=== PATIENT | male | born 1960 | race Caucasian/White ===

== ENCOUNTER 2016-12-05 19:11 | Inpatient (IN) ==
[~2016-12-05 19:11] MED LIST: *HR* Propofol 500 MG/50 ML BOTTLE IVC ONE; Lidocaine -MPF 2% 5 ML VIAL INFILT ONE
[2016-12-05] MEDS ORDERED: Ondansetron 4 MG/2 ML VIAL IVP ONE (20:10)
[2016-12-05] MEDS ORDERED: Ketorolac 30 MG/ML VIAL IVP ONE (20:10)
[2016-12-05] MEDS ORDERED: *HR* FentaNYL (PF) 100 MCG/2 ML VIAL IVP ONE (20:11)
--- NOTE | 2016-12-05 20:14 | Emergency Department Note ---
Disposition Clinical Impression: Flank pain, Osteolytic lesion Abdominal pain Qualifiers: Abdominal location: right lower quadrant Qualified Code(s): R10.31 - Right lower quadrant pain Disposition: Admitted As Inpatient Condition: Fair Time of Disposition: 06:52 General Adult HPI - General Chief complaint: ED Abdominal Pain Stated complaint: ABD PAIN/BLOATING, N/V Time Seen by Provider: 12/05/16 19:40 Source: patient, family Mode of arrival: ambulatory Limitations: no limitations Nursing Notes Reviewed: Yes Vital Signs Reviewed: Yes - History of Present Illness HPI Narrative: History of lower abdominal pain. He states that 5 days ago he was pumping up a tire on his tractor and believes that this is how his abdominal pain began. He does have chronic back pain. He states that the pain is gotten worse and he has diaphoresis whenever the pain is extreme. He states that Dottie was unable to sleep due to the pain. He states that he has no history of kidney stones however ascends to. He states the pain is worse in his back and radiates around to his groin. Pain Scale: 8 - Related Data Home Medications Medication Instructions Recorded Confirmed Aspirin Enteric Coated [Aspirin EC] 81 mg PO DAILY 02/11/16 12/05/16 Meloxicam 15 mg PO DAILY 02/11/16 12/05/16 Terazosin HCl 2 mg PO HS 02/11/16 12/05/16 Atorvastatin Calcium [Lipitor] 20 mg PO HS 12/05/16 12/05/16 HYDROcodone/Acet 7.5/325 mg [Nettie 1 tab PO Q4H PRN 12/05/16 12/05/16 7.5-325 mg] Loratadine [Claritin] 10 mg PO DAILY 12/05/16 12/05/16 Omeprazole [PriLOSEC] 20 mg PO BID 12/05/16 12/05/16 Allergies Allergy/AdvReac Type Severity Reaction Status Date / Time No Known Allergies Allergy Verified 02/11/16 17:16 All systems ED: reviewed and negative except as stated. Constitutional: Denies: fever, chills ENT ED: Denies: congestion Cardiovascular: Denies: chest pain, palpitations, syncope Respiratory: Denies: cough, dyspnea Gastrointestinal: Reports: abdominal pain (Radiates around from his right back. Lower quadrant pain.). Denies: nausea, vomiting, diarrhea Genitourinary: Reports: hematuria (Chronic due to prostate enlargement). Denies : urgency, dysuria, frequency Musculoskeletal: Reports: back pain (Right sided back pain radiates down to his groin) Integumentary: Denies: rash, abrasion Neurological: Denies: headache, weakness, numbness, paresthesias Past Medical History - Past Medical History Medical history: Reports: hyperlipidemia, RA, other Psychiatric history: Reports: no psych history - Social History Smoking Status: Former smoker Smokeless Tobacco Status: No Alcohol use: Reports: occasionally Drug use: Reports: none Physical Exam - General Limitations: no limitations General appearance: alert, in no apparent distress - Head Head exam: atraumatic, normocephalic, normal inspection - Eye Eye exam: Present: normal appearance, PERRL, EOMI. Absent: scleral icterus - ENT ENT exam: normal exam, normal oropharynx, mucous membranes moist - Neck Neck exam: Present: normal inspection, full ROM, trachea midline. Absent: tenderness, meningismus - Chest Chest inspection: Present: normal inspection, symmetric chest wall rise. Absent : tenderness - Cardiovascular Cardiovascular exam: Present: regular rate, normal rhythm - Abdominal Exam Abdominal exam: Present: soft, Non-Tender, tenderness (Right lower quadrant radiation from his back. No Myers sign.). Absent: distention, rebound, rigidity, normal bowel sounds, organomegaly - Extremities Exam Extremities exam: Present: normal inspection, full ROM, normal capillary refill. Absent: tenderness, pedal edema - Back Exam Back exam: Present: normal inspection, full ROM, CVA tenderness (R). Absent: tenderness - Neurological Exam Neurological exam: Present: alert, oriented X3 - Psychiatric Psychiatric exam: Present: normal affect, normal mood - Skin Skin exam: Present: warm, dry, intact, normal color. Absent: rash, cyanosis, diaphoresis Course Course Narrative: Well-appearing male patient lying comfortably in bed complaining of a four-day history of lower abdominal pain. He states 5 days ago he was pumping up a tire on his tractor and noticed some lower abdominal pain. He thought he strained his muscles when he woke up Sunday morning he had a diffuse pain across his lower abdomen. The pain has since moved to his right flank and now radiates down into his right groin area. He states he has pain that shoots to his right testicle. He does drive a truck. He states that he was comfortable yesterday while driving a truck but then when he tried to get to sleep he could not get comfortable and was sweating due to the pain. He does report a history of an perforated stomach. His abdomen is diffusely nontender on exam. He has good bowel sounds. He has no pain on palpation of his upper quadrants. He does have some minimal pain on palpation of his right lower quadrant and then up around to his flank. He does have some CVA tenderness on the right. He also has suprapubic tenderness. States he does have a history of an enlarged prostate and generally has blood in his urine due to this. He denies any fevers or chills but does report getting sweaty due to the pain. He states he has no history of kidney stones however both of his sons have extensive history of stones. We will provide patient with pain relief get basic lab workup and scan patient's abdomen. - Reevaluation(s) Reevaluation #1: We will admit patient for possible metastatic disease to his back as well as stranding around the pancreatic head. He has been made aware of the lesions in his spine as well as the stranding around his pancreas. He is agreeable to admission at this time. He is well-appearing however requesting more pain medication. We will provide this at this time. - Consultations Consultation #1: Dr. Malcolm accepted patient is stable condition. Vital Signs Temperature 98.2 F 12/05/16 19:25 Pulse Rate 90 12/05/16 19:25 Respiratory Rate 18 12/05/16 19:25 Blood Pressure 144/89 12/05/16 19:25 O2 Sat by Pulse Oximetry 97 12/05/16 19:25 Temperature 98.6 F 12/06/16 03:56 Pulse Rate 77 12/06/16 03:56 Respiratory Rate 16 12/06/16 03:56 Blood Pressure 142/83 12/06/16 03:56 O2 Sat by Pulse Oximetry 96 12/06/16 03:56 Oxygen Delivery Oxygen Delivery Room Air Medical Decision Making - Medical Records Medical records reviewed: Yes I reviewed the patient's medical records. - Lab Data Lab results reviewed: Yes I reviewed the patient's lab results. Result diagrams: 12/05/16 20:30 12/05/16 20:30 Lab Results 0512/05/16 12/05/16 Range/Units 19:58 20:30 20:30 WBC 10.8 (4.3-11.1) K/mcL RBC 4.64 (4.19-5.50) M/mcL Hgb 13.2 (12.9-16.9) g/dL Hct 40.7 (37.5-50.1) % MCV 87.7 (83.0-100.0) fL MCH 28.4 (28.0-33.3) pg MCHC 32.4 (31.6-35.5) g/dL RDW 13.2 (11.5-14.5) % Plt Count 243 (140-400) K/mcL MPV 10.8 (9.4-12.4) fL Immature Gran % 0.5 (0-4) % Seg Neutrophils % 75.2 % Lymphocytes % 14.1 % Monocytes % 8.0 % Eosinophils % 1.8 % Basophils % 0.4 % Neutrophils # 8.1 (1.6-8.9) K/mcL Lymphocytes # 1.5 (0.6-4.6) K/mcL Monocytes # 0.9 (0.0-1.3) K/mcL Eosinophils # 0.2 (0.0-0.6) K/mcL Basophils # 0.0 (0.0-0.2) K/mcL Sodium 139 (136-145) mEq/L Potassium 3.6 (3.5-4.5) mEq/L Chloride 104 (98-109) mEq/L Carbon Dioxide 26 (19-29) mEq/L BUN 23 (8-26) mg/dL Creatinine 0.97 (0.72-1.25) mg/dL Est GFR ( Amer) > 60 (> 60) Est GFR (Non-Af Amer) > 60 (> 60) BUN/Creatinine Ratio 24 (6-26) Glucose 98 (70-99) mg/dL Calculated Osmolality 292 (280-300) Calcium 10.5 (8.6-10.8) mg/dL Total Bilirubin 0.6 (0.2-1.2) mg/dL Direct Bilirubin 0.4 (0.0-0.5) mg/dL Indirect Bilirubin 0.2 (0.0-1.2) mg/dL AST 36 H (5-34) Units/L ALT 45 (0-55) Units/L Alkaline Phosphatase 240 H (38-126) Units/L Serum Total Protein 7.7 (6.0-8.3) g/dL Albumin 3.5 (3.5-5.0) g/dL Globulin 4.2 H (2.4-3.5) g/dL Albumin/Globulin Ratio 0.8 L (1.1-2.2) Amylase 82 (25-125) Units/L Lipase 20 (8-78) Units/L Urine Color Dark Yellow (Yellow) Urine Clarity Cloudy A (Clear) Urine pH 5.5 (5.0-8.0) pH Units Ur Specific [place] > 1.030 H (1.010-1.025) Urine Protein 100 H (Neg-Trace) mg/dL Urine Glucose (UA) Normal (Normal) mg/dL Urine Ketones Trace H (Negative) mg/dL Urine Blood Moderate H (Negative) Urine Nitrite Negative (Negative) Urine Bilirubin Small H (Negative) Urine Urobilinogen Normal (Normal) mg/dL Ur Leukocyte Esterase Negative (Negative) Urine Microscopic RBC 3-5 H (0-3) per hpf Urine Microscopic WBC 0-3 (0-3) per hpf Ur Squamous Epith Cells Few (None-Few) per lpf Calcium Oxalate Crystal Present Urine Bacteria Few (None-Few) per hpf Hyaline Casts None Seen (None-Few) per lpf Urine Mucus Many H (Few) Ur Culture Indicated? NO (NO) - Radiology Data Radiology results reviewed: Yes I reviewed the patient's radiology results. Attestation Statement - Attestation Attestation: I personally interviewed and examined this patient and my medical decision- making was reviewed with the ED Resident Physician, Dr. Burgos. I agree with the documented findings, disposition and treatment plan as described except to the extent set forth below. Patient is a 48-year-old white male who presents to the emergency room today brought by his for complaints of intermittent right flank pain and right lower quadrant abdominal pain. Patient states over the weekend he was using a pump to inflate a tire and while he was pumping on the pump he developed some transient left groin pain which has since resolved. Patient states after he woke up the next day he was having generalized abdominal pain, felt like he was in his abdominal wall that was sore and then intermittent episodes of right flank pain that radiates around toward the right abdomen. Patient states that in the past year he has had abdominal surgery for a perforated viscus most likely due to ulcer formation from anti-inflammatory use and required emergent surgery. states since that time he still does not feel he is back to 100% from that incident and when he began to have abdominal pain they were both concerned and wanted to make sure he did not have any complications or recurrences of problems. She has been afebrile, no upper respiratory symptoms cold or cough, no chest pain or heaviness, no shortness of breath, no nausea or vomiting associated with this pain, no bowel changes and no bright red blood per rectum. Patient has chronic urinary symptoms secondary to enlarged prostate which he sees urologist for. According to the patient has chronic microscopic hematuria from this and occasional episodes where he has difficulty maintaining a urine stream. This has not changed or worsened with these symptoms. Patient also has chronic low back pain that he takes pain medications and formerly anti- inflammatories for. Patient denies any history of fall or trauma prior to the orientation of this pain. Agree with physical exam is documented. On my assessment patient had no flank tenderness on the right most of his tenderness was right paraspinal lumbosacral area, and also some mild right lower quadrant tenderness without peritoneal signs. Otherwise abdomen is soft with good bowel sounds. Receipted with lab evaluation, urinalysis, and CT imaging of the abdomen and pelvis. Patient's labs overall were unremarkable with a normal lipase but CT shows stranding and inflammation around the majority of the pancreas that appear consistent with pancreatitis. He also has what appear to be areas of bony metastases in the spine but unclear as to the etiology. Prostate appears normal. No other abnormalities were seen in the abdomen and pelvis. On his symptoms and these findings on CT we will admit the patient for further evaluation and management of abnormal CT findings. Discussed results with patient and who agree with plan she will be admitted to the hospitalist service. He has remained hemolytically stable throughout his ED course here and is in no acute distress currently.
[2016-12-05 20:21] LABS: Bilirubin,Urine Small (Negative); Blood,Urine Moderate (Negative); Clarity,Urine Cloudy (Clear); Color,Urine Dark Yellow (Yellow); Glucose,Urine (UA) Normal (Normal); Ketones,Urine Trace mg/dL (Negative); Leukocyte Esterase,Urine Negative (Negative); Nitrite,Urine Negative (Negative); PH,Urine 5.5 pH Units (5.0-8.0); Protein,Urine 100 mg/dL (Neg-Trace); Specific Gravity,Urine > 1.030 (1.010-1.025); Urobilinogen,Urine Normal (Normal)
[2016-12-05 20:34] LABS: Bacteria,Urine Few per hpf (None-Few); Calcium Oxalate Crystals,Urine Present; Hyaline Casts,Urine None Seen per lpf (None-Few); Mucus,Urine Many (Few); Squamous Epithelial Cell,Urine Few per lpf (None-Few); WBC,Urine 0-3 per hpf (0-3)
[2016-12-05 20:47] LABS: Basophils % 0.4 %; Eosinophils # 0.2 K/mcL (0.0-0.6); Eosinophils % 1.8 %; Hematocrit 40.7 % (37.5-50.1); Hemoglobin 13.2 g/dL (12.9-16.9); Immature Granulocytes % 0.5 % (0-4); Lymphocytes # 1.5 K/mcL (0.6-4.6); Lymphocytes % 14.1 %; Mean Corpuscular HGB Conc 32.4 g/dL (31.6-35.5); Mean Corpuscular Hemoglobin 28.4 pg (28.0-33.3); Mean Corpuscular Volume 87.7 fL (83.0-100.0); Mean Platelet Volume 10.8 fL (9.4-12.4); Monocytes # 0.9 K/mcL (0.0-1.3); Neutrophils # 8.1 K/mcL (1.6-8.9); Platelet Count 243 K/mcL (140-400); Red Blood Count 4.64 M/mcL (4.19-5.50); Red Cell Distribution Width 13.2 % (11.5-14.5); Segmented Neutrophils % 75.2 %
[2016-12-05 21:03] LABS: Alanine Aminotransferase 45 Units/L (0-55); Albumin 3.5 g/dL (3.5-5.0); Albumin/Globulin Ratio 0.8 (1.1-2.2); Alkaline Phosphatase 240 Units/L (38-126); Amylase 82 Units/L (25-125); Aspartate Amino Transferase 36 Units/L (5-34); BUN/Creatinine Ratio 24 (6-26); Bilirubin,Direct 0.4 mg/dL (0.0-0.5); Bilirubin,Indirect 0.2 mg/dL (0.0-1.2); Bilirubin,Total 0.6 mg/dL (0.2-1.2); Blood Urea Nitrogen 23 mg/dL (8-26); Calcium 10.5 mg/dL (8.6-10.8); Carbon Dioxide 26 mEq/L (19-29); Chloride 104 mEq/L (98-109); Globulin 4.2 g/dL (2.4-3.5); Glucose 98 mg/dL (70-99); Lipase 20 Units/L (8-78); Osmolality,Calculated 292 (280-300); Potassium 3.6 mEq/L (3.5-4.5); Sodium 139 mEq/L (136-145); Total Protein 7.7 g/dL (6.0-8.3); eGFR For African Americans > 60 (> 60); eGFR For Non-African Americans > 60 (> 60)
[2016-12-05] MEDS ORDERED: *HR* HYDROmorphone (PF) 1 MG/ML SYRINGE IVP ONE (22:26)
[2016-12-05] MEDS ORDERED: Acetaminophen 325 MG TABLET PO PRN (23:47)
[2016-12-05] MEDS ORDERED: Ondansetron 4 MG/2 ML VIAL IVP PRN (23:47)
[2016-12-05] MEDS ORDERED: Naloxone 0.4 MG/ML INJ IVP PRN (23:47)
--- NOTE | 2016-12-06 00:16 | Internal Med History&Physical ---
Date of Encounter: 12/06/16 Time of Encounter: 23:45 Assessment and Plan (1) Pancreatic cancer Current visit: Yes Status: Suspected Patient presents with new onset abdominal pain related to an injury which has been getting worse over the last 3-4 days. Tenderness to palpation on abdominal exam. Laboratory data reviewed. CT scan reveals possible pancreatitis with enlarged pancreatic head and possible metastatic disease. Suspicion for pancreatic cancer that is metastatic versus prostate cancer as the patient has a history of enlarged prostate. Patient will be admitted to inpatient status. Moderate risk due to need for further evaluation and possible pancreatitis which needs conservative management and intravenous fluids. At risk of worsening pancreatitis. Expected discharge disposition is to home. We will obtain MRI of the abdomen with and without contrast to further evaluate the pancreas for possible malignancy. Further management to depend on the results of the MRI. We will consider oncology and GI/surgery consults depending on the results of the MRI. Pain control. Qualifiers: Pancreatic malignancy location: head of pancreas Qualified Code(s): C25.0 - Malignant neoplasm of head of pancreas (2) Obesity (BMI 30.0-34.9) Current visit: Yes Status: Acute Internal Medicine - H&P: HPI Chief complaint: Abdominal pain Admitted From: Emergency Dept Plans for Post Hospital Care: Home History of present illness: Mr. Shoemaker is a 56 year old male who presented to the emergency room due to abdominal pain. Patient states that he was pumping air into the tires of his lawnmower on Sunday when he started having abdominal pain in his upper abdomen in the midline. He attributed this to possibly having pulled a muscle. However , over the past 2-3 days, the pain has gotten worse and increased to 10/10 in severity of cramping in nature in the middle of the abdomen radiating to the back around his abdomen on both sides which is aggravated with movement and relieved with rest and pain medication. Hence, he presented to the emergency department for evaluation. He reports some nausea and lightheadedness but denies any vomiting. He states that he has not had a bowel movement since . He usually has bowel movements every 2-3 days. He reports chronic back pain and joint pains for which he uses Vicodin at home. He reports a 10 pound weight gain over the last 3 months. He denies any changes in his appetite , swelling in his legs, urinary symptoms, headache or weakness in his arms or legs. He denies chest pain, shortness of breath, palpitations, cough or wheezing. Past Med Surg Social Fam HX - Past Medical History Attestation: Yes The following information was validated with the patient. Source: patient Medical history: hyperlipidemia, hypertension, RA Psychiatric history: no psych history - Past Surgical History Surgical History: appendectomy, orthopedic, other (left shoulder, right elbow, bilateral knee surgeries), other (gastric surgery for gastric ulcer rupture one year ago) - Social History Smoking Status: Former smoker Packs per day: 60 pack years and quit 1 year ago Smokeless Tobacco Status: No Alcohol use: occasionally Drug use: none Occupational status: employed Current living situation: Home Activity Level: Independent ambulation Recent Out of Country Travel Within the Last 8 Weeks: No Exposure or Possible Exposure to Illness During Travel: No - Family History Father Living Status: Hx Family Respiratory Disorders: Yes (lung cancer) Internal Medicine - H&P: Meds Aspirin Enteric Coated [Aspirin EC] 81 mg PO DAILY 02/11/16 [History] Meloxicam 15 mg PO DAILY 02/11/16 [History] Terazosin HCl 2 mg PO HS 02/11/16 [History] Atorvastatin Calcium [Lipitor] 20 mg PO HS 12/05/16 [History] HYDROcodone/Acet 7.5/325 mg [[place] 7.5-325 mg] 1 tab PO Q4H PRN 12/05/16 [ History] Loratadine [Claritin] 10 mg PO DAILY 12/05/16 [History] Omeprazole [PriLOSEC] 20 mg PO BID 12/05/16 [History] Allergies No Known Allergies Allergy (Verified 02/11/16 17:16) All Systems PM: A 10-system review of systems was performed and is negative for pertinent findings except as documented above in the HPI. Review of systems: 10 systems have been reviewed and are negative except as mentioned in the history of present illness - Constitutional Vitals: Temp Pulse Resp BP Pulse Ox 98.7 F 68 16 125/80 96 12/05/16 23:35 12/05/16 23:35 12/05/16 23:35 12/05/16 23:35 12/05/16 23:35 Exam: Gen.: Lying in bed. No acute distress. Eyes: Pupils equal, round and reactive to light. Extraocular muscles intact. ENT: Moist mucous membranes. No oropharyngeal erythema or discharge. Chest: Clear to auscultation bilaterally. No adventitious sounds present. CVS: First and second heart sounds present. No murmurs, rubs or gallops. Abdomen: Soft, tenderness to palpation in the right lumbar region and umbilical region without any rebound tenderness, guarding or rigidity; obese. Bowel sounds present. No hepatosplenomegaly. Skin: No decubitus ulcers appreciated. EXHAUST AND MUFFLER REPAIRER: No focal neuro deficits present. Psychiatric: Alert, awake and oriented to time, place and person. Lymphatic system: No lymphadenopathy appreciated Internal Med - H&P Results - Labs CBC & Chem 7: 12/05/16 20:30 12/05/16 20:30 - Diagnostic Studies CT scan - abdomen Additional comments: Pancreatic head is enlarged with stranding surrounding the head concerning for pancreatitis. Diffuse sclerosis of the nausea structures concerning for metastasis.
[2016-12-06] MEDS: *HR* Morphine 2 MG/ML SYRINGE IVP PRN ×7 (00:47→22:23)
[2016-12-06] MEDS: *HR* Heparin 5,000 UNIT/ML VIAL SQ SCH ×4 (00:47→22:24)
[2016-12-06] MEDS: Sennosides/Docusate Sodium TABLET PO SCH ×3 (00:47→20:16)
[2016-12-06] MEDS: Potassium Chloride 10 MEQ in D5% in 0.9% NACL 1,000 ML IVC SCH ×2 (00:57→14:48)
[2016-12-06] MEDS: *HR* HYDROcodone/Acet 7.5/325 mg TABLET PO PRN ×4 (04:31→19:27)
[2016-12-06] MEDS: Loratadine 10 MG TABLET PO SCH (07:56)
--- NOTE | 2016-12-06 08:38 | Internal Med Progress Note ---
<Isaac Hernandes - Last Filed: 12/06/16 15:37> Date of Encounter: 12/06/16 Time of Encounter: 15:37 - Assessment and plan (1) Pancreatic cancer Current Visit: Yes Status: Suspected Assessment and plan: 56-year-old male presents to chief complaint abdominal pain which started after pumping air into the tires on his lawnmower on Sunday. Initially abdominal pain was upper abdomen midline and felt like a pulled muscle however pain worsened over the next 3 days and felt like sharp, cramping 10 out of 10 midline pain radiating to the back and around both sides of the abdomen. Pain was aggravated movement and relieved with rest and pain medication. Patient states she has not had a bowel movement since . Patient states she has gained 10 pounds her last 3 months. He denies family history of cancer. Patient is a former smoker with 60 pack years and quit 1 year ago. On exam today patient was nontender to palpation of the abdomen however did state he had deep midline abdominal pain that radiated to the back. CT scan showed possible pancreatitis with enlarged pancreatic head and possible metastatic disease as lesions are seen in the thoracic/lumbar spine. has hx of prostate enlargement. Lipase and amylase was within normal limits. Alkaline phosphatase elevated at 240. PSA pending MRI of the abdomen showed enlarged heterogeneous appearance of the uncinate process of the pancreas with extensive inflammatory fluid and peripancreatic inflammation suggesting acute pancreatitis and multiple enhancing foci throughout the thoracic and lumbar spine suggesting diffuse osseous metastatic disease. GI consulted for further evaluation. NPO midnight Qualifiers: Pancreatic malignancy location: head of pancreas Qualified Code(s): C25.0 - Malignant neoplasm of head of pancreas (2) Malignancy Current Visit: Yes Status: Acute Assessment and plan: On MRI and CT multiple lesions were noted in the lumbar and thoracic spine. Patient has history of enlarged prostate: PSA pending. MRI and CT show enlargement of pancreatic head which could also be the source. GI consultation to evaluate patient for pancreatic cancer. (3) GERD (gastroesophageal reflux disease) Current Visit: Yes Status: Acute Assessment and plan: We will continue patient's omeprazole. Denies nausea, vomiting, epigastric pain. Qualifiers: Esophagitis presence: esophagitis presence not specified Qualified Code(s) : K21.9 - Gastro-esophageal reflux disease without esophagitis (4) Hyperlipidemia Current Visit: Yes Status: Acute Assessment and plan: Stable. Continue patient's atorvastatin. Qualifiers: Hyperlipidemia type: unspecified Qualified Code(s): E78.5 - Hyperlipidemia , unspecified (5) DVT prophylaxis Current Visit: Yes Status: Acute Assessment and plan: Heparin subcutaneous. - Subjective Interval history: Patient continues to complain of midline abdominal pain that radiates to the back. He denies any nausea, vomiting, diarrhea, fevers, chest pain, shortness of breath, weakness, weight loss, family history of cancer. - Constitutional Vitals: Temp Pulse Resp BP Pulse Ox 98.4 F 74 16 145/73 96 12/06/16 07:40 12/06/16 07:40 12/06/16 07:40 12/06/16 07:40 12/06/16 07:40 General appearance: Present: A&O X 3, pleasant - Head Head exam: Present: atraumatic, normocephalic - Eye Eye exam: Present: PERRL, conjuntiva pink, sclera anicteric - Neck Neck exam general surgery: Present: supple, trachea midline. Absent: lymphadenopathy - Respiratory Respiratory exam: Present: CTAB. Absent: accessory muscle use, rales, rhonchi, wheezes - Cardiovascular Cardiovascular exam: Present: RRR, +S1, +S2. Absent: diastolic murmur, gallop, rubs, systolic murmur - GI/Abdominal GI/Abdominal exam: Present: distended (Patient states this is chronic after having surgery for peritonitis status post stomach perforation), normal bowel sounds, soft, no peritoneal signs. Absent: firm, guarding, hepatomegaly, mass, rigid, tenderness Additional comments: Midline abdominal hernia, midline scar - Extremities Exam Extremities exam: Present: warm, radial pulses palpable and symetrical. Absent : calf tenderness, cyanotic, pedal edema - Neurological Exam Neurological exam: Present: CN II-XII intact, oriented X3, no focal deficits. Absent: pronater drift, facial droop, speech deficit - Skin Skin exam: Present: dry, intact Internal Medicine: Result - Labs CBC & Chem 7: 12/05/16 20:30 12/05/16 20:30 Consult Discharge Plan - Plan Referrals: Bryce Leon MD [Primary Care Provider] - <Juan Kumar P - Last Filed: 12/06/16 17:46> Date of Encounter: 12/06/16 - Constitutional Vitals: Temp Pulse Resp BP Pulse Ox 98.2 F 58 16 101/64 96 12/06/16 15:42 12/06/16 15:42 12/06/16 15:42 12/06/16 15:42 12/06/16 15:42 Internal Medicine: Result - Labs CBC & Chem 7: 12/05/16 20:30 12/05/16 20:30 - Impressions Impressions Abdomen MRI 12/06/16 06:50 IMPRESSION: Enlarged heterogeneous appearance of the uncinate process of the pancreas with extensive inflammatory fluid and peripancreatic inflammation suggesting acute pancreatitis. Inflammatory fluid in the paracolic gutters is also noted. Recommend correlation with amylase and lipase values as well as follow-up to resolution to exclude an underlying pancreatic mass. Multiple enhancing foci throughout the visualized thoracic and lumbar spine suggesting diffuse osseous metastatic disease. Recommend correlation with PSA values as prostate cancer can have this appearance. No evidence of pancreatic ductal obstruction or biliary obstruction. The findings were sent to the Radiology Results Communication Center at 11:42 am on 12/06/2016to be communicated to a licensed caregiver. D/ / 12/06/2016 12:08:03 Troy Sanabria MD / patricia Interpreting Provider: Troy Sanabria MD - Attending Attestation this is event note this is not billable note I examined this patient and my medical decision-making was reviewed with the CUT ROLL MACHINE OPERATOR/PA/Advanced Practice Nurse/Resident Physician. I agree with the documented findings, disposition and treatment plan as described except to the extent set forth below.
[2016-12-06] MEDS ORDERED: Nicotine 2 MG GUM BC PRN (17:26)
[2016-12-07] MEDS: Potassium Chloride 10 MEQ in D5% in 0.9% NACL 1,000 ML IVC SCH ×2 (04:13→22:09)
[2016-12-07] MEDS: *HR* Morphine 2 MG/ML SYRINGE IVP PRN ×6 (04:52→22:05)
[2016-12-07] MEDS: *HR* HYDROcodone/Acet 7.5/325 mg TABLET PO PRN ×3 (08:48→18:48)
[2016-12-07 09:25] LABS: Hematocrit 38.2 % (37.5-50.1); Hemoglobin 12.3 g/dL (12.9-16.9); Mean Corpuscular HGB Conc 32.2 g/dL (31.6-35.5); Mean Corpuscular Hemoglobin 28.3 pg (28.0-33.3); Mean Platelet Volume 10.4 fL (9.4-12.4); Platelet Count 224 K/mcL (140-400); Red Blood Count 4.34 M/mcL (4.19-5.50)
[2016-12-07 10:23] LABS: Alanine Aminotransferase 76 Units/L (0-55); Albumin 3.2 g/dL (3.5-5.0); Albumin/Globulin Ratio 0.9 (1.1-2.2); Alkaline Phosphatase 303 Units/L (38-126); Amylase 100 Units/L (25-125); Aspartate Amino Transferase 52 Units/L (5-34); BUN/Creatinine Ratio 17 (6-26); Bilirubin,Total 0.6 mg/dL (0.2-1.2); Blood Urea Nitrogen 17 mg/dL (8-26); Calcium 9.8 mg/dL (8.6-10.8); Carbon Dioxide 27 mEq/L (19-29); Chloride 106 mEq/L (98-109); Globulin 3.5 g/dL (2.4-3.5); Glucose 94 mg/dL (70-99); Lipase 34 Units/L (8-78); Osmolality,Calculated 289 (280-300); Potassium 4.1 mEq/L (3.5-4.5); Sodium 139 mEq/L (136-145); Total Protein 6.7 g/dL (6.0-8.3); eGFR For African Americans > 60 (> 60); eGFR For Non-African Americans > 60 (> 60)
[2016-12-07 10:44] LABS: Carcinoembryonic Antigen 1.7 ng/mL (0-5.0)
--- NOTE | 2016-12-07 12:25 | Gastroenterology Consult Note ---
<Ben Yun - Last Filed: 12/07/16 12:23> Date of Encounter: 12/07/16 Time of Encounter: 10:40 - Assessment and plan (1) Abdominal pain Current Visit: Yes Status: Acute Assessment and plan: CT scan showed possible pancreatitis with enlarged pancreatic head and possible metastatic disease as lesions are seen in the thoracic/lumbar spine. MRI of the abdomen showed enlarged heterogeneous appearance of the uncinate process of the pancreas with extensive inflammatory fluid and peripancreatic inflammation suggesting acute pancreatitis and multiple enhancing foci throughout the thoracic and lumbar spine suggesting diffuse osseous metastatic disease, no evidence of pancreatic ductal obstruction or biliary obstruction. Dr. Segura reviewed images with radiologist, no pancreatic mass seen. No indication for EUS at this time. CEA 1.7, CA 19-9 pending. Will complete EGD today. Keep NPO Qualifiers: Abdominal location: upper abdomen, unspecified Qualified Code(s): R10.10 - Upper abdominal pain, unspecified (2) Pancreatitis Current Visit: Yes Status: Acute Assessment and plan: MRI of the abdomen showed enlarged heterogeneous appearance of the uncinate process of the pancreas with extensive inflammatory fluid and peripancreatic inflammation suggesting acute pancreatitis and multiple enhancing foci throughout the thoracic and lumbar spine suggesting diffuse osseous metastatic disease, no evidence of pancreatic ductal obstruction or biliary obstruction. Lipase normal. AST 52, ALT 76, and alk phos 303. Continue IV fluids, pain control, and anti-emetics. Continue to monitor hepatic panel. Qualifiers: Pancreatitis type: unspecified pancreatitis type Qualified Code(s): K85.90 - Acute pancreatitis without necrosis or infection, unspecified - Time Spent With Patient Total time spent is greater than 50% in coordination of care (as documented) at patient's floor/unit and/or counseling patient: GI History of Present Illness - Data of Consult Patient: new to practice Consult date: 12/07/16 Requesting Physician: Iraida Patrick - Consult Narrative Reason for consult: Pancreatic mass History of present illness: Mr. Shoemaker is a 56 year old male with PMHx of HLD and HTN who presented to the ED with abdominal pain. Patient states that he was pumping air into the tires of his lawnmower on Sunday when he started having abdominal pain in his upper abdomen in the midline. He attributed this to possibly having pulled a muscle. Over the 2-3 days prior to admission, the pain worsened and increased to 10/10 in severity, cramping in nature in the middle of the abdomen, radiating to the back. Pain is aggravated with movement and relieved with rest and pain medication. He reports some nausea and lightheadedness but denies any vomiting. He states that he has not had a bowel movement since . He usually has bowel movements every 2-3 days. He denies chest pain, shortness of breath, palpitations, cough or wheezing. CT scan showed possible pancreatitis with enlarged pancreatic head and possible metastatic disease as lesions are seen in the thoracic/lumbar spine. MRI of the abdomen showed enlarged heterogeneous appearance of the uncinate process of the pancreas with extensive inflammatory fluid and peripancreatic inflammation suggesting acute pancreatitis and multiple enhancing foci throughout the thoracic and lumbar spine suggesting diffuse osseous metastatic disease, no evidence of pancreatic ductal obstruction or biliary obstruction. Procedures: None NSAIDs: meloxicam, ASA Anticoagulation: None Past Med Surg Social Fam HX - Past Medical History Medical history: hyperlipidemia, RA, other Psychiatric history: no psych history - Past Surgical History Surgical History: appendectomy, orthopedic, other (left shoulder, right elbow, bilateral knee surgeries), other (gastric surgery for gastric ulcer rupture one year ago) - Social History Smoking Status: Former smoker Packs per day: 60 pack years and quit 1 year ago Smokeless Tobacco Status: No Alcohol use: occasionally Drug use: none - Family History Father Living Status: Hx Family Respiratory Disorders: Yes (lung cancer) - Gastrointestinal Gastrointestinal: Present: as per HPI - Constitutional Constitutional: as per HPI - EENT Eyes: as per HPI Ears: Present: as per HPI Nose, mouth and throat: Present: as per HPI - Cardiovascular Cardiovascular ROS: Present: as per HPI - Respiratory Respiratory IM: Present: as per HPI - Genitourinary Genitourinary: Absent: change in color, Urinary frequency - Neurological ROS Neurological GI: Present: as per HPI - Hematologic/Lymphatic Hematologic/Lymphatic pediatric: Present: as per HPI - Musculoskeletal Musculoskeletal ROS GI: Present: as per HPI - Integumentary Integumentary GI: Present: as per HPI - Psychiatric ROS Psychiatric GI: Present: as per HPI - Endocrine Endocrine IM: Present: as per HPI - Constitutional Vitals: Temp Pulse Resp BP Pulse Ox 98.5 F 75 16 124/78 97 12/07/16 11:36 12/07/16 11:36 12/07/16 11:36 12/07/16 11:36 12/07/16 11:36 General appearance: Present: cooperative, A&O X 3, no acute distress, answers questions appropriately - Head Head exam: Present: atraumatic, normocephalic - Eye Eye exam: Present: normal appearance, sclera anicteric - ENT ENT exam: Present: mucous membranes dry - Neck Neck exam general surgery: Present: normal inspection, trachea midline - Respiratory Respiratory exam: Present: CTAB. Absent: rales, rhonchi - Cardiovascular Cardiovascular exam: Present: RRR, +S1, +S2 - GI/Abdominal GI/Abdominal exam: Present: soft, tenderness (upper abdominal tenderness), no peritoneal signs. Absent: distended, firm, guarding - Rectal Rectal exam: Present: deferred - Extremities Exam Extremities exam: Present: warm - Neurological Exam Neurological exam: Present: no focal deficits - Psychiatric Psychiatric exam: Present: normal affect, normal mood - Skin Skin exam: Present: dry, intact, normal color, warm Results - Labs CBC & Chem 7: 12/07/16 09:07 12/07/16 09:07 Labs: Last Result Calcium 9.8 mg/dL (8.6-10.8) 12/07/16 09:07 Entire Visit Hgb 12.3 g/dL (12.9-16.9) L 12/07/16 09:07 Hct 38.2 % (37.5-50.1) 12/07/16 09:07 Total Bilirubin 0.6 mg/dL (0.2-1.2) 12/07/16 09:07 AST 52 Units/L (5-34) H 12/07/16 09:07 ALT 76 Units/L (0-55) H 12/07/16 09:07 Amylase 100 Units/L (25-125) 12/07/16 09:07 Lipase 34 Units/L (8-78) 12/07/16 09:07 Carcinoembryonic Ag 1.7 ng/mL (0-5.0) 12/07/16 09:07 Consult Discharge Plan - Plan Referrals: Bryce Leon MD [Primary Care Provider] - <Francie Segura - Last Filed: 12/07/16 13:40> Date of Encounter: 12/07/16 Time of Encounter: 13:00 - Time Spent With Patient Total time spent is greater than 50% in coordination of care (as documented) at patient's floor/unit and/or counseling patient: GI History of Present Illness - Data of Consult Requesting Physician: Iraida Patrick - Consult Narrative History of present illness: Mr. Shoemaker is a 56 year old male - Constitutional Vitals: Temp Pulse Resp BP Pulse Ox 98.5 F 69 18 147/90 94 12/07/16 11:36 12/07/16 12:44 12/07/16 12:44 12/07/16 12:44 12/07/16 12:44 Results - Labs CBC & Chem 7: 12/07/16 09:07 12/07/16 09:07 Labs: Last Result Calcium 9.8 mg/dL (8.6-10.8) 12/07/16 09:07 Entire Visit Hgb 12.3 g/dL (12.9-16.9) L 12/07/16 09:07 Hct 38.2 % (37.5-50.1) 12/07/16 09:07 Total Bilirubin 0.6 mg/dL (0.2-1.2) 12/07/16 09:07 AST 52 Units/L (5-34) H 12/07/16 09:07 ALT 76 Units/L (0-55) H 12/07/16 09:07 Amylase 100 Units/L (25-125) 12/07/16 09:07 Lipase 34 Units/L (8-78) 12/07/16 09:07 Carcinoembryonic Ag 1.7 ng/mL (0-5.0) 12/07/16 09:07 - Attending Attestation I examined this patient and my medical decision-making was reviewed with the YOKE PRESSER/PA/Advanced Practice Nurse/Resident Physician. I agree with the documented findings, disposition and treatment plan as described except to the extent set forth below. Patient with the abdominal pain since Sunday. Per the Patient the pain is getting better now. CT reviewed with Dr. Irma Renee/radiology. No mass in the pancreas but there is some mild inflammatory changes in the uncinate and around the SMA. We will do an EGD to rule out peptic ulcer disease/duodenitis. Patient will need a repeat imaging of the pancreatic in about 2-3 month
--- NOTE | 2016-12-07 12:46 | Anesthesia Evaluation PreOp ---
Date of Encounter: 12/07/16 Time of Encounter: 12:45 - Past History Planned Operation: EGD Cardiac History: HTN, Hyperlipidemia Pulmonary History: Former smoker, COPD BUSINESS SERVICES OFFICER History: Denies Any Significant HX Other Medical History: Other (Pancreatic Ca) Anesthesia History: No Prior Anesthetic Complications Alcohol Use: occasionally Drug use: none Medications and Allergies Aspirin Enteric Coated [Aspirin EC] 81 mg PO DAILY 02/11/16 [History] Meloxicam 15 mg PO DAILY 02/11/16 [History] Terazosin HCl 2 mg PO HS 02/11/16 [History] Atorvastatin Calcium [Lipitor] 20 mg PO HS 12/05/16 [History] HYDROcodone/Acet 7.5/325 mg [[place] 7.5-325 mg] 1 tab PO Q4H PRN 12/05/16 [ History] Loratadine [Claritin] 10 mg PO DAILY 12/05/16 [History] Omeprazole [PriLOSEC] 20 mg PO BID 12/05/16 [History] Allergies No Known Allergies Allergy (Verified 02/11/16 17:16) - Meds/Allergy Pre-op Review Medications Reviewed: Yes Allergies Reviewed: Yes Beta Blockers on Current Med List: No Anesthesia Results - Labs 12/07/16 09:07 12/07/16 09:07 - Imaging EKG: report reviewed (SR occ PSVT) Anesthesia Exam O2 Sat Weight 103.192 kg O2 Sat by Pulse Oximetry 94 O2 Sat by Pulse Oximetry 97 O2 Sat by Pulse Oximetry 97 O2 Sat by Pulse Oximetry 94 O2 Sat by Pulse Oximetry 95 O2 Sat by Pulse Oximetry 97 O2 Sat by Pulse Oximetry 96 Vital Signs Temp Pulse Resp BP Pulse Ox 98.2 F 90 18 144/89 97 12/05/16 19:25 12/05/16 19:25 12/05/16 19:25 12/05/16 19:25 12/05/16 19:25 Height: 5'9 Weight: 227 lbs NPO (# of Hours): MN Pain Scale: 0 - HEENT Pupil (Motor): Pupils equal, EOMI Mallampati: II Teeth: Edentulous Oral Opening: Less than or equal to 3 - BUSINESS SERVICES OFFICER LOC: Oriented BUSINESS SERVICES OFFICER Motor: Normal RUE, Normal LUE, Normal RLE, Normal LLE, Normal Face BUSINESS SERVICES OFFICER Sensory: Normal: RUE, LUE, RLE, LLE, Face - Cardiac Rhythm: Regular Murmur: None JVD: No Carotid Bruit: No - Pulmonary Breath Sounds: bilateral Clear Respiratory Effort: Symmetrical Anesthesia Assess/Plan ASA Score: 3 (HTN COPD Tobacco) Modified Rpisca Scale for Level of Consciousness: Cooperative, oriented, and tranquil Anesthetic Plan: MAC Monitoring Plan: Standard Monitors Recovery Plan: Other (Discussed MAC, agrees to proceed)
--- NOTE | 2016-12-07 13:17 | Internal Med Progress Note ---
<Isaac Hernandes - Last Filed: 12/07/16 13:35> Date of Encounter: 12/07/16 Time of Encounter: 13:35 - Assessment and plan (1) Pancreatic cancer Current Visit: Yes Status: Suspected Assessment and plan: Improving abdominal pain. CT scan showed possible pancreatitis with enlarged pancreatic head and possible metastatic disease as lesions are seen in the thoracic/lumbar spine. has hx of prostate enlargement. Lipase and amylase was within normal limits. Alkaline phosphatase elevated at 240. MRI of the abdomen showed enlarged heterogeneous appearance of the uncinate process of the pancreas with extensive inflammatory fluid and peripancreatic inflammation suggesting acute pancreatitis and multiple enhancing foci throughout the thoracic and lumbar spine suggesting diffuse osseous metastatic disease. Imaging was reviewed by GI and radiology state there is no mass in the pancreas but there is inflammatory changes in the uncinate and around the SMA. CEA 1.7, CA19-9 pending. EGD showed normal esophagus with duodenitis. Patient was recommended PPI daily for 4 weeks. Furthermore patient will need a repeat CT abdomen in 2- 3 months. (2) Malignancy Current Visit: Yes Status: Acute Assessment and plan: On MRI and CT multiple lesions were noted in the lumbar and thoracic spine. Patient has history of enlarged prostate: PSA pending. MRI and CT show enlargement of pancreatic head which could also be the source. GI stated that no pancreatic masses seen and EUS is not indicated at this time. Pancreatic cancer is suspected. Patient needs repeat imaging of pancreas in 2 -3 months. (3) GERD (gastroesophageal reflux disease) Current Visit: Yes Status: Acute Assessment and plan: We will continue patient's omeprazole. Denies nausea, vomiting, epigastric pain. (4) Hyperlipidemia Current Visit: Yes Status: Acute Assessment and plan: Stable. Continue patient's atorvastatin. (5) DVT prophylaxis Current Visit: Yes Status: Acute Assessment and plan: Heparin subcutaneous. - Subjective Interval history: Patient continues to complain of midline abdominal pain that radiates to the back. He denies any nausea, vomiting, diarrhea, fevers, chest pain, shortness of breath, weakness, weight loss, family history of cancer. No problems overnight. - Constitutional Vitals: Temp Pulse Resp BP Pulse Ox 98.5 F 69 18 147/90 94 12/07/16 11:36 12/07/16 12:44 12/07/16 12:44 12/07/16 12:44 12/07/16 12:44 General appearance: Present: A&O X 3, pleasant - Respiratory Respiratory exam: Present: CTAB. Absent: accessory muscle use, rales, rhonchi, wheezes - Cardiovascular Cardiovascular exam: Present: RRR, +S1, +S2. Absent: diastolic murmur, gallop, rubs, systolic murmur - GI/Abdominal GI/Abdominal exam: Present: distended, hernia (midline abdominal), normal bowel sounds, soft, no peritoneal signs. Absent: tenderness Internal Medicine: Result - Labs CBC & Chem 7: 12/07/16 09:07 12/07/16 09:07 Labs: Short CBC 12/07/16 Range/Units 09:07 WBC 6.7 (4.3-11.1) K/mcL Hgb 12.3 L (12.9-16.9) g/dL Hct 38.2 (37.5-50.1) % Plt Count 224 (140-400) K/mcL BMP 12/07/16 09:07 Sodium 139 Potassium 4.1 Chloride 106 Carbon Dioxide 27 BUN 17 Creatinine 0.98 Glucose 94 Calcium 9.8 Liver Function 12/07/16 Range/Units 09:07 Total Bilirubin 0.6 (0.2-1.2) mg/dL AST 52 H (5-34) Units/L ALT 76 H (0-55) Units/L Alkaline Phosphatase 303 H (38-126) Units/L Albumin 3.2 L (3.5-5.0) g/dL Consult Discharge Plan - Plan Referrals: Bryce Leon MD [Primary Care Provider] - 12/21/16 4:15 pm <Juan Kumar P - Last Filed: 12/07/16 17:57> Date of Encounter: 12/07/16 - Constitutional Vitals: Temp Pulse Resp BP Pulse Ox 98.3 F 66 16 123/77 95 12/07/16 16:14 12/07/16 16:14 12/07/16 16:14 12/07/16 16:14 12/07/16 16:14 Internal Medicine: Result - Labs CBC & Chem 7: 12/07/16 09:07 12/07/16 14:25 Labs: Short CBC 12/07/16 Range/Units 09:07 WBC 6.7 (4.3-11.1) K/mcL Hgb 12.3 L (12.9-16.9) g/dL Hct 38.2 (37.5-50.1) % Plt Count 224 (140-400) K/mcL BMP 12/07/16 12/07/16 09:07 14:25 Sodium 139 138 Potassium 4.1 3.9 Chloride 106 105 Carbon Dioxide 27 25 BUN 17 15 Creatinine 0.98 0.92 Glucose 94 89 Calcium 9.8 10.1 Liver Function 12/07/16 12/07/16 Range/Units 09:07 14:25 Total Bilirubin 0.6 0.6 (0.2-1.2) mg/dL AST 52 H 44 H (5-34) Units/L ALT 76 H 74 H (0-55) Units/L Alkaline Phosphatase 303 H 320 H (38-126) Units/L Albumin 3.2 L 3.3 L (3.5-5.0) g/dL - Attending Attestation I examined this patient and my medical decision-making was reviewed with the CLIPMAN/PA/Advanced Practice Nurse/Resident Physician. I agree with the documented findings, disposition and treatment plan as described except to the extent set forth below. As per GI: Unlikely pancreatic cancer. Oncology on the board and we will follow the recommendation.
--- NOTE | 2016-12-07 13:31 | Anesthesia Evaluation Post Op ---
Date of Encounter: 12/07/16 Time of Encounter: 13:31 - Vital Signs Vital Signs: Vital Signs/O2 Sat/Glucose, Most Current Temp Pulse Resp BP Pulse Ox 12/07/16 12:44 69 18 147/90 94 12/07/16 11:36 98.5 F 75 16 124/78 97 - Lungs Lungs: Clear Ascult./Percussion - Airway Airway: Non-obstructed - Cardiovascular Regular Rate, Baseline Rhythm - Mental Status Mental Status: Alert & Oriented, Answers Appropriately - Pain Pain Scale: 0 Pain Scale used: Numeric (1 - 10) - Nausea Vomiting Nausea Vomiting: Not Present - Hydration Hydration: NPO, Has not voided - Discharge PostOp Status: Transfer Patient to floor
[2016-12-07] MEDS: *HR* Heparin 5,000 UNIT/ML VIAL SQ SCH ×3 (14:05→22:12)
[2016-12-07] MEDS: Loratadine 10 MG TABLET PO SCH (14:06)
[2016-12-07] MEDS: Sennosides/Docusate Sodium TABLET PO SCH ×2 (14:06→20:10)
[2016-12-07 15:23] LABS: Alanine Aminotransferase 74 Units/L (0-55); Albumin 3.3 g/dL (3.5-5.0); Albumin/Globulin Ratio 0.8 (1.1-2.2); Alkaline Phosphatase 320 Units/L (38-126); Aspartate Amino Transferase 44 Units/L (5-34); BUN/Creatinine Ratio 16 (6-26); Bilirubin,Total 0.6 mg/dL (0.2-1.2); Blood Urea Nitrogen 15 mg/dL (8-26); Calcium 10.1 mg/dL (8.6-10.8); Carbon Dioxide 25 mEq/L (19-29); Chloride 105 mEq/L (98-109); Glucose 89 mg/dL (70-99); Osmolality,Calculated 286 (280-300); Potassium 3.9 mEq/L (3.5-4.5); Sodium 138 mEq/L (136-145); Total Protein 7.3 g/dL (6.0-8.3); eGFR For African Americans > 60 (> 60); eGFR For Non-African Americans > 60 (> 60)
[2016-12-07] MEDS: 0.9 % Sodium Chloride 1,000 ML IVC SCH (15:32)
--- NOTE | 2016-12-07 16:17 | Oncology Inp Consult Note ---
<Prabhu Shoemaker Jr - Last Filed: 12/07/16 16:49> Date of Encounter: 12/07/16 Time of Encounter: 16:10 Assessment and Plan (1) Osteolytic lesion Status: Acute Assessment and plan: This is a very pleasant 56 year old male with sclerotic lesions of lumbar and thoracic spine. No significant family history of hereditary cancers in the family. He has no personal history of cancer. The patient states he had several injuries throughout his adult life in thoracic and lumbar spine. He had spinal injections and ablations in theses areas of the spine. Due to these lesions in the spine, there is a concern for a metastatic cancer, unknown source. Patient's pancreas has no masses, and was diagnosed with pancreatitis, and, duodenitis on EGD. He does have a history of heavier alcohol use in young adulthood, and now drinks some 2 cans of beer on the weekends. He is a former smoker. He has a mildly enlarged prostate, and PSA pending. CEA normal at 1.7 and CA 19.9 pending. We will complete work up with CT of the chest and Whole body bone scan. We will follow along during admission and follow as an outpatient with Dr Harris if needed. Dr Harris assessed patient with me. (2) History of tobacco abuse Status: Acute (3) Abdominal pain Status: Acute Qualifiers: Abdominal location: upper abdomen, unspecified Qualified Code(s): R10.10 - Upper abdominal pain, unspecified (4) Pancreatitis Status: Acute Qualifiers: Pancreatitis type: unspecified pancreatitis type Qualified Code(s): K85.90 - Acute pancreatitis without necrosis or infection, unspecified - Data of Consult Patient: new to practice Consult date: 12/07/16 Requesting Physician: Iraida Patrick Primary Care Provider: Bryce Leon MD - Consult Narrative Reason for consult: Spinal lytic lesions History of present illness: Mr. Shoemaker is a 56 year old male admitted to [facility] for abdominal pain. CT scan showed possible pancreatitis with enlarged pancreatic head and possible metastatic lesions in thoracic and lumbar spine. The patient has a history of prostate enlargement. MRI abdomen showed enlarged heterogeneous appearance of the uncinate process of the pancreas with extensive inflammatory fluid and peripancreatic inflammation suggesting pancreatitis and multiple enhancing foci throughout thoracic and lumbar spine suggesting diffuse osseous metastatic disease. MRI was reviewed by GI And radiology and state there is no mass in the pancreas. EGD showed normal esophagus with duodenitis, and started on PPI for 4 weeks CEA normal at 1.7. Ca 19.9 and PSA pending. Medical oncology consulted for concerns of metastatic cancer from unknown source. Past Med Surg Social Fam HX - Past Medical History Medical history: hyperlipidemia, RA, other Psychiatric history: no psych history - Past Surgical History Surgical History: appendectomy, orthopedic, other (left shoulder, right elbow, bilateral knee surgeries), other (gastric surgery for gastric ulcer rupture one year ago) - Social History Smoking Status: Former smoker Packs per day: 60 pack years and quit 1 year ago Smokeless Tobacco Status: No Alcohol use: occasionally Drug use: none - Family History Father Living Status: Hx Family Respiratory Disorders: Yes (lung cancer) Medications and Allergies Aspirin Enteric Coated [Aspirin EC] 81 mg PO DAILY 02/11/16 [History] Meloxicam 15 mg PO DAILY 02/11/16 [History] Terazosin HCl 2 mg PO HS 02/11/16 [History] Atorvastatin Calcium [Lipitor] 20 mg PO HS 12/05/16 [History] HYDROcodone/Acet 7.5/325 mg [[place] 7.5-325 mg] 1 tab PO Q4H PRN 12/05/16 [ History] Loratadine [Claritin] 10 mg PO DAILY 12/05/16 [History] Omeprazole [PriLOSEC] 20 mg PO BID 12/05/16 [History] Allergies No Known Allergies Allergy (Verified 02/11/16 17:16) Gastrointestinal: Present: abdominal pain Oncology - Exam - Constitutional Vitals: Temp Pulse Resp BP Pulse Ox 98.1 F 82 18 132/89 95 12/07/16 13:49 12/07/16 13:49 12/07/16 13:49 12/07/16 13:49 12/07/16 13:49 General appearance: no acute distress - Head Head exam: Present: atraumatic, normal inspection - Eye Eye exam: Present: normal appearance, PERRL - ENT ENT exam: Present: mucous membranes moist - Neck Neck exam: Present: full ROM, normal inspection - Respiratory Respiratory exam: Present: CTAB - Cardiovascular Cardiovascular exam: Present: RRR, +S1, +S2 - GI/Abdominal GI/Abdominal exam: Present: firm, hypoactive bowel sounds - Extremities Exam Extremities exam: Present: full ROM, normal inspection - Neurological Exam Neurological exam: Present: alert, CN II-XII intact, oriented X3, no focal deficits - Psychiatric Psychiatric exam: Present: normal affect, normal mood - Skin Skin exam: Present: dry, intact, warm Oncology - Results - Labs Labs: Short CBC 12/07/16 Range/Units 09:07 WBC 6.7 (4.3-11.1) K/mcL Hgb 12.3 L (12.9-16.9) g/dL Hct 38.2 (37.5-50.1) % Plt Count 224 (140-400) K/mcL BMP 12/07/16 12/07/16 09:07 14:25 Sodium 139 138 Potassium 4.1 3.9 Chloride 106 105 Carbon Dioxide 27 25 BUN 17 15 Creatinine 0.98 0.92 Glucose 94 89 Calcium 9.8 10.1 Liver Function 12/07/16 12/07/16 Range/Units 09:07 14:25 Total Bilirubin 0.6 0.6 (0.2-1.2) mg/dL AST 52 H 44 H (5-34) Units/L ALT 76 H 74 H (0-55) Units/L Alkaline Phosphatase 303 H 320 H (38-126) Units/L Albumin 3.2 L 3.3 L (3.5-5.0) g/dL Consult Discharge Plan - Plan Referrals: Bryce Leon MD [Primary Care Provider] - 12/21/16 4:15 pm <StevenLisa lombardi S - Last Filed: 12/08/16 08:37> Date of Encounter: 12/08/16 - Data of Consult Requesting Physician: Iraida Patrick Primary Care Provider: Bryce Leon MD - Consult Narrative History of present illness: Mr. Shoemaker is a 56 year old male Oncology - Exam - Constitutional Vitals: Temp Pulse Resp BP Pulse Ox 98.4 F 73 16 132/85 95 12/08/16 08:09 12/08/16 08:09 12/08/16 08:09 12/08/16 08:09 12/08/16 08:09 Oncology - Results - Labs Labs: Short CBC 12/07/16 Range/Units 09:07 WBC 6.7 (4.3-11.1) K/mcL Hgb 12.3 L (12.9-16.9) g/dL Hct 38.2 (37.5-50.1) % Plt Count 224 (140-400) K/mcL BMP 12/07/16 12/07/16 09:07 14:25 Sodium 139 138 Potassium 4.1 3.9 Chloride 106 105 Carbon Dioxide 27 25 BUN 17 15 Creatinine 0.98 0.92 Glucose 94 89 Calcium 9.8 10.1 Liver Function 12/07/16 12/07/16 Range/Units 09:07 14:25 Total Bilirubin 0.6 0.6 (0.2-1.2) mg/dL AST 52 H 44 H (5-34) Units/L ALT 76 H 74 H (0-55) Units/L Alkaline Phosphatase 303 H 320 H (38-126) Units/L Albumin 3.2 L 3.3 L (3.5-5.0) g/dL - Attending Attestation 1. Acute pancreatitis symptoms. Presented with upper quadrant abdominal pain and nausea both improved CT abdomen and pelvis 12/05/2016 showed pancreatic inflammation with terrence- pancreatic stranding. MRI abdomen 12/06/2016 redemonstrated pancreatic inflammation. No evidence of malignancy in the pancreas line amylase lipase normal. Etiology of pancreatitis not clear. He did have some high alcohol use in the past but currently few beers a week No gallstone disease. He is not on any medication that contributes to pancreatitis EGD showed mild duodenitis biopsies done CA 19-9 pending. CEA normal at 1.7 . 2. Sclerotic bone lesion in the thoracic spine by CT scan and MRI. They have shown slight increase from 2016 CAT scan. He had some injury to the back and he thinks some of this Changes could be secondary to that Prostate only mildly enlarged. PSA pending pending. He does have long-term history of smoking for 30 years quit within the last 6 months Complete staging proceed with noncontrast CT chest and whole body bone scan 3. Constipation. Last bowel movement one week ago. He does have some work quadrant abdominal pain which could be secondary to that. He is on stool softeners and fleets edema
[2016-12-08] MEDS: *HR* Morphine 2 MG/ML SYRINGE IVP PRN ×2 (08:41→15:24)
--- NOTE | 2016-12-08 09:28 | Internal Med Progress Note ---
Date of Encounter: 12/08/16 - Assessment and plan (1) Pancreatic cancer Current Visit: Yes Status: Suspected Qualifiers: Pancreatic malignancy location: head of pancreas Qualified Code(s): C25.0 - Malignant neoplasm of head of pancreas (2) Malignancy Current Visit: Yes Status: Acute (3) GERD (gastroesophageal reflux disease) Current Visit: Yes Status: Acute Qualifiers: Esophagitis presence: esophagitis presence not specified Qualified Code(s) : K21.9 - Gastro-esophageal reflux disease without esophagitis (4) Hyperlipidemia Current Visit: Yes Status: Acute Qualifiers: Hyperlipidemia type: unspecified Qualified Code(s): E78.5 - Hyperlipidemia , unspecified (5) DVT prophylaxis Current Visit: Yes Status: Acute - Subjective Interval history: Patient continues to complain of midline abdominal pain that radiates to the back. He denies any nausea, vomiting, diarrhea, fevers, chest pain, shortness of breath, weakness, weight loss, family history of cancer. No problems overnight. - Constitutional Vitals: Temp Pulse Resp BP Pulse Ox 98.4 F 73 16 132/85 95 12/08/16 08:09 12/08/16 08:09 12/08/16 08:09 12/08/16 08:09 12/08/16 08:09 General appearance: Present: A&O X 3, pleasant Internal Medicine: Result - Labs CBC & Chem 7: 12/07/16 09:07 12/07/16 14:25 Labs: BMP 12/07/16 12/07/16 09:07 14:25 Sodium 139 138 Potassium 4.1 3.9 Chloride 106 105 Carbon Dioxide 27 25 BUN 17 15 Creatinine 0.98 0.92 Glucose 94 89 Calcium 9.8 10.1 Liver Function 12/07/16 12/07/16 Range/Units 09:07 14:25 Total Bilirubin 0.6 0.6 (0.2-1.2) mg/dL AST 52 H 44 H (5-34) Units/L ALT 76 H 74 H (0-55) Units/L Alkaline Phosphatase 303 H 320 H (38-126) Units/L Albumin 3.2 L 3.3 L (3.5-5.0) g/dL Consult Discharge Plan - Plan Referrals: Bryce Leon MD [Primary Care Provider] - 12/21/16 4:15 pm
[2016-12-08] MEDS: *HR* Heparin 5,000 UNIT/ML VIAL SQ SCH (10:08)
[2016-12-08] MEDS: Loratadine 10 MG TABLET PO SCH (10:08)
[2016-12-08] MEDS: Sennosides/Docusate Sodium TABLET PO SCH (10:08)
[2016-12-08] MEDS: *HR* HYDROcodone/Acet 7.5/325 mg TABLET PO PRN ×2 (10:10→14:39)
[2016-12-08] MEDS: 0.9 % Sodium Chloride 1,000 ML IVC SCH (10:17)
[2016-12-08] MEDS: Potassium Chloride 10 MEQ in D5% in 0.9% NACL 1,000 ML IVC SCH (14:40)
[2016-12-08 15:15] VITALS: BP 157/107
--- NOTE | 2016-12-08 16:12 | Discharge Summary ---
<Isaac Hernandes - Last Filed: 12/08/16 17:01> Date of Encounter: 12/08/16 Time of Encounter: 16:10 - Discharge Diagnosis (1) Prostate cancer metastatic to bone Priority: Primary Status: Suspected (2) Pancreatic cancer Priority: Secondary Status: Ruled-out Qualifiers: Pancreatic malignancy location: head of pancreas Qualified Code(s): C25.0 - Malignant neoplasm of head of pancreas (3) Malignancy Priority: Secondary Status: Acute (4) GERD (gastroesophageal reflux disease) Priority: Secondary Status: Acute Qualifiers: Esophagitis presence: esophagitis presence not specified Qualified Code(s) : K21.9 - Gastro-esophageal reflux disease without esophagitis (5) Hyperlipidemia Priority: Secondary Status: Acute Qualifiers: Hyperlipidemia type: unspecified Qualified Code(s): E78.5 - Hyperlipidemia , unspecified (6) DVT prophylaxis Priority: Secondary Status: Acute - Discharge Medications Prescriptions: HYDROcodone/Acet 10/325 mg [Combs 10-325 mg] 1 tab PO Q6HR PRN #21 tab PRN Reason: Pain Omeprazole [PriLOSEC] 40 mg PO DAILY #30 cap Zolpidem [Ambien] 5 mg PO HS #20 tablet Home Medications: Aspirin Enteric Coated [Aspirin EC] 81 mg PO DAILY 02/11/16 [History] Meloxicam 15 mg PO DAILY 02/11/16 [History] Terazosin HCl 2 mg PO HS 02/11/16 [History] Atorvastatin Calcium [Lipitor] 20 mg PO HS 12/05/16 [History] Loratadine [Claritin] 10 mg PO DAILY 12/05/16 [History] Omeprazole [PriLOSEC] 20 mg PO BID 12/05/16 [History] HYDROcodone/Acet 10/325 mg [Combs 10-325 mg] 1 tab PO Q6HR PRN #21 tab 12/08/16 [Rx] Omeprazole [PriLOSEC] 40 mg PO DAILY #30 cap 12/08/16 [Rx] Zolpidem [Ambien] 5 mg PO HS #20 tablet 12/08/16 [Rx] Allergies/Adverse Reactions: Allergies No Known Allergies Allergy (Verified 02/11/16 17:16) Procedures/tests Complete & Pending: Procedures Performed prior 72 hours Category Date Time Status CT chest wo con [CT] Routine Cat Scan 12/08/16 08:00 Draft NM bone scan whole body [NM] Routine Exams 12/08/16 06:00 Completed MR abdomen wo/w con [MR] Routine MRI 12/06/16 06:50 Completed Date of admission: 12/05/16 23:47 Primary care physician: Bryce Leon MD Consults: 12/06/16 15:36 Consult to Gastroenterology [CONS] Routine Consulting Provider: [facility] Reason for Consult: Pancreatic mass Call Completed: Yes 12/07/16 14:13 Consult to Oncology [CONS] Routine Consulting Provider: [facility] Reason for Consult: lumbar and thoracic lesions Call Completed: Yes - Patient Status Disposition: Home, Self-Care Condition: Fair Functional capacity at discharge: independent ambulation Overall status at discharge: patient is progressing back to baseline - Discharge Instructions Follow Up With: Bryce Leon MD [Primary Care Provider] - 12/21/16 4:15 pm Lisa Harris MD [Partnered Physician] - (Office should call with appointment date and time.) - Diet and Activity Activity: increase activity as tolerated Diet: low fat, low cholesterol Interval History: 56-year-old male presents to chief complaint abdominal pain which started after pumping air into the tires on his lawnmower on Sunday. Initially abdominal pain was upper abdomen midline and felt like a pulled muscle however pain worsened over the next 3 days and felt like sharp, cramping 10 out of 10 midline pain radiating to the back and around both sides of the abdomen. Pain was aggravated movement and relieved with rest and pain medication. Patient states she has not had a bowel movement since . Patient states she has gained 10 pounds her last 3 months. He denies family history of cancer. Patient is a former smoker with 60 pack years and quit 1 year ago. Hospital course: CT abdomen: possible pancreatitis with enlarged pancreatic head and possible metastatic disease as lesions are seen in the thoracic/lumbar spine. has hx of prostate enlargement. MRI abdomen showed enlarged heterogeneous appearance of the uncinate process of the pancreas with extensive inflammatory fluid and peripancreatic inflammation suggesting acute pancreatitis and multiple enhancing foci throughout the thoracic and lumbar spine suggesting diffuse osseous metastatic disease. Lipase, amylase WNL. Elevated alkaine phosphatase 240 GI consulted for concern of pancreatic cancer. GI stated this is not pancreatic cancer after reviewing imaging with radiology: CEA 1.7. CA 19-9 pending. Underwent EGD with findings of duodinitis with biopsy pending and recommended 4 week PPI. Oncology ordered bone scan: showed small foci of increased activity in ribs b/l , thoracic and lumbar spine, sternum with mild acitivty seen at shoulder, elbows wirist handsknees ankles feet likley degernerative. CT CT Chest: tiny sclerotic foci involving thoracic spine and ribs. PSA elevated 150. Suspected metastatic prostate cancer. Had extenstive conversation with patient and family about financial situation. Family state they will be covered 100% at [facility] and only 60% at [facility]. They understand treatment will be standard of care at both places. Patient insists on getting treatment at [facility]. Plan was agreed upon to call [facility] financial counselor, on Sunday12/11/2016 at 12PM as she and Dr. Kumar will work on getting patient covered at [facility] for his evaluation and treatment. If patient is 100% covered here he will get his treatment and evaluation at [facility]. Plan: patient will follow up Dr. Harris, oncology, outpatient. Call financial counselor on Sunday. New prescription: hydrocodone/hailey 10/325 daily Q6H PRN pain 21 tablets. - Time Spent with Patient Total time spent providing and/or coordinating discharge services: - Constitutional Vitals: Temp Pulse Resp BP Pulse Ox 98.2 F 81 16 157/107 96 12/08/16 15:12 12/08/16 15:12 12/08/16 15:12 12/08/16 15:12 12/08/16 15:12 General appearance: Present: A&O X 3, pleasant - Head Head exam: Present: atraumatic, normocephalic - Eye Eye exam: Present: PERRL, conjuntiva pink, sclera anicteric - Neck Neck exam general surgery: Present: supple, trachea midline. Absent: lymphadenopathy - Respiratory Respiratory exam: Present: CTAB. Absent: accessory muscle use, rales, rhonchi, wheezes - Cardiovascular Cardiovascular exam: Present: RRR, +S1, +S2. Absent: diastolic murmur, gallop, rubs, systolic murmur - GI/Abdominal GI/Abdominal exam: Present: hernia (midline ), normal bowel sounds, soft, no peritoneal signs. Absent: distended, tenderness - Extremities Exam Extremities exam: Present: warm, radial pulses palpable and symetrical. Absent : calf tenderness, cyanotic, pedal edema - Neurological Exam Neurological exam: Present: CN II-XII intact, oriented X3, no focal deficits. Absent: pronater drift, facial droop, speech deficit - Skin Skin exam: Present: dry, intact <Satcy,Juan P - Last Filed: 12/11/16 17:48> Date of Encounter: 12/11/16 Date of admission: 12/05/16 23:47 Primary care physician: Bryce Leon MD Consults: 12/06/16 15:36 Consult to Gastroenterology [CONS] Routine Consulting Provider: [facility] Reason for Consult: Pancreatic mass Call Completed: Yes 12/07/16 14:13 Consult to Oncology [CONS] Routine Consulting Provider: [facility] Reason for Consult: lumbar and thoracic lesions Call Completed: Yes Hospital course: Mr. Shoemaker is a 56 year old male - Time Spent with Patient Total time spent providing and/or coordinating discharge services: - Constitutional Vitals: Temp Pulse Resp BP Pulse Ox 98.2 F 81 16 157/107 96 12/08/16 15:12 12/08/16 15:12 12/08/16 15:12 12/08/16 15:12 12/08/16 15:12 - Attending Attestation I examined this patient and my medical decision-making was reviewed with the LOCKSTITCH TUNNEL ELASTIC OPERATOR/PA/Advanced Practice Nurse/Resident Physician. I agree with the documented findings, disposition and treatment plan as described except to the extent set forth below. spoke to administration regarding treatment cost admin will contact [facility] patient will be contacting [facility] from [facility]
--- NOTE | 2016-12-09 04:47 | Event Note ---
Date of Encounter: 12/09/16 Time of Encounter: 04:46 I tried to sign this d/c summary yesterday as well as this morning. I was unable to sign this due to persistent message "updates are currently in process. this report can not be edited untill updates are complete." how ever I was able to edit this note. please treat this as signed d/c till "updates are in progress"
== END 2016-12-08 17:45 | disposition home or self-care (01) | DRG 435 ==
LOC: 3BNU 19:11 → EMEROO 19:11 → 3BNU 23:22
PROVIDERS: ADMIT Internal Medicine Sleep Medicine; ATTEND Nurse Practitioner Family
PROC: ENDOEBX (2016-12-07 13:30)